=== PATIENT | female | born 1990 | race Caucasian/White ===

== ENCOUNTER 2024-06-18 20:13 | Emergency (ER) | payer BC ==
[2024-06-18 20:23] VITALS: BP 132/82; PULSE 87; RESP 18; TEMP 97.7; BMI 33.1
[2024-06-18 22:04] LABS: BASO % 0.6 % (0-2.0); EOS % 0.8 % (0-4.5); HEMATOCRIT 35.1 % (32.4-45.2); HEMOGLOBIN 11.8 GM/dL (10.7-15.3); LYMPH % 30.7 % (8-40); MCH 27.1 pg (25.7-33.7); MCHC 33.6 g/dl (32.0-36.0); MEAN CELL VOLUME 80.8 fl (80-96); MEAN PLT VOLUME 7.3 fl (7.5-11.1); MONO % 5.9 % (3.8-10.2); PLATELET COUNT 311 10^3/uL (134-434); RBC 4.35 M/mm3 (3.60-5.2); WHITE BLOOD COUNT 9.5 K/mm3 (4.0-10.0)
[2024-06-18 22:07] LABS: URINE APPEARANCE CLEAR; URINE BILIRUBIN NEGATIVE (NEGATIVE); URINE COLOR YELLOW; URINE GLUCOSE (UA) NEGATIVE (NEGATIVE); URINE KETONE NEGATIVE (NEGATIVE); URINE LEUK ESTERASE NEGATIVE (NEGATIVE); URINE NITRITE NEGATIVE (NEGATIVE); URINE PROTEIN NEGATIVE (NEGATIVE); URINE UROBILINOGEN 0.2 mg/dL (0.2-1.0)
[2024-06-18 22:32] LABS: POTASSIUM 3.8 mmol/L (3.5-5.1)
[2024-06-18 22:35] LABS: ALBUMIN 3.6 g/dl (3.4-5.0); CALCIUM 9.3 mg/dL (8.5-10.1)
[2024-06-18 22:38] LABS: CREATININE 0.7 mg/dL (0.55-1.3)
[2024-06-18 22:40] LABS: TOT PROT 7.4 g/dl (6.4-8.2)
[2024-06-18 22:42] LABS: BILIRUBIN,TOTAL 0.2 mg/dL (0.2-1)
[2024-06-18 23:25] LABS: HIV INTERPRETATION NEGATIVE (NEGATIVE)
== END 2024-06-19 00:31 | disposition home or self-care (01) ==
LOC: JER 20:13
DX: O26.891 Other specified pregnancy related conditions, first trimester (principal); N89.8 Other specified noninflammatory disorders of vagina; R10.30 Lower abdominal pain, unspecified; M54.9 Dorsalgia, unspecified; Z3A.01 Less than 8 weeks gestation of pregnancy
CPT/HCPCS: 36415; 76830-TC; 80053; 81003; 84702; 85025; 86803; 86850; 86900; 86901; 87389; 99284-25

== ENCOUNTER 2024-06-25 21:30 | Emergency (ER) | payer BC ==
[2024-06-25 21:39] VITALS: BP 123/81; PULSE 89; RESP 18; TEMP 98; BMI 32.2
[2024-06-25 23:44] LABS: BASO % 0.2 % (0-2.0); EOS % 0.5 % (0-4.5); HEMOGLOBIN 11.9 GM/dL (10.7-15.3); LYMPH % 30.9 % (8-40); MCH 27.1 pg (25.7-33.7); MCHC 33.9 g/dl (32.0-36.0); MEAN CELL VOLUME 79.9 fl (80-96); MEAN PLT VOLUME 7.4 fl (7.5-11.1); MONO % 5.6 % (3.8-10.2); NEUT % 62.8 % (42.8-82.8); PLATELET COUNT 328 10^3/uL (134-434); RBC 4.38 M/mm3 (3.60-5.2); RDW 14.3 % (11.6-15.6); WHITE BLOOD COUNT 11.3 K/mm3 (4.0-10.0)
[2024-06-25 23:51] LABS: EPI CELLS >36 /uL (0-25.1); HYALINE CASTS 2 /uL (0-3.1); URINE APPEARANCE TURBID; URINE BACTERIA 0 /uL (0-1359); URINE BILIRUBIN 1+ (NEGATIVE); URINE COLOR RED; URINE GLUCOSE (UA) NEGATIVE (NEGATIVE); URINE KETONE NEGATIVE (NEGATIVE); URINE LEUK ESTERASE 2+ (NEGATIVE); URINE NITRITE NEGATIVE (NEGATIVE); URINE PROTEIN 2+ (NEGATIVE); URINE UROBILINOGEN 0.2 mg/dL (0.2-1.0); URINE WBC 152 /uL (0-25.8)
[2024-06-25 23:59] LABS: URINE RBC 44863.2 /uL (0-23.9)
[2024-06-26 00:08] LABS: POTASSIUM 4.2 mmol/L (3.5-5.1)
[2024-06-26 00:10] LABS: ALBUMIN 3.9 g/dl (3.4-5.0); CALCIUM 9.1 mg/dL (8.5-10.1)
[2024-06-26 00:11] LABS: BLOOD UREA NITROGEN 13.7 mg/dL (7-18)
[2024-06-26 00:14] LABS: CREATININE 0.7 mg/dL (0.55-1.3)
[2024-06-26 00:15] LABS: BILIRUBIN,TOTAL 0.3 mg/dL (0.2-1); TOT PROT 7.7 g/dl (6.4-8.2)
== END 2024-06-26 01:45 | disposition home or self-care (01) ==
LOC: JER 21:30
DX: O03.9 Complete or unspecified spontaneous abortion without complication (principal)
CPT/HCPCS: 36415; 76817-TC; 80053; 81003; 84702; 85025; 87086; 93005; 93010; 99285-25